=== PATIENT | male | born 1960 | race Caucasian/White ===

== ENCOUNTER 2019-02-06 15:07 | Inpatient (IN) | payer OTHER ==
[~2019-02-06] VITALS: Ht 185.4 cm; Wt 132.4 kg
[2019-02-06 15:13] VITALS: BP 138/93
[2019-02-06] MEDS ORDERED: LIPITOR80 MG PO (15:21)
[2019-02-06] MEDS ORDERED: VENTOLIN HFA 1818 GM INH (15:21)
[2019-02-06] MEDS ORDERED: ASPIR 8181 M1 PO (15:21)
[2019-02-06] MEDS ORDERED: GUAIFENESIN400 MG PO (15:22)
[2019-02-06] MEDS ORDERED: ALLER-EASE180 MG PO (15:22)
[2019-02-06] MEDS ORDERED: CARVEDILOL3.125 MG PO (15:22)
[2019-02-06] MEDS ORDERED: EFFIENT10 MG PO (15:23)
[2019-02-06] MEDS ORDERED: LISINOPRIL5 MG PO (15:23)
[2019-02-06] MEDS ORDERED: CLARITIN10 MG PO (15:23)
[2019-02-06 16:18] LABS: HEMATOCRIT 48.2 % (42.0-52.0); HEMOGLOBIN 16.7 gm/dL (14.0-18.0); MCH 29.3 pg (26.0-34.0); MCHC 34.5 g/dL (28.0-37.0); MPV 8.1 fl. (7.2-11.1); NUCLEATED RBCS 0 /100WBC; PLATELET COUNT* 278 thou/uL (150-400); RBC 5.68 mil/uL (4.50-6.00); RDW-CV 14.3 % (10.5-14.5); WBC 11.6 thou/uL (4.0-11.0)
[2019-02-06 16:33] LABS: ANION GAP 9 mmol/L (7-16); APTT 28.7 Seconds (25.0-31.3); BUN 13 mg/dL (7-18); CALCIUM 8.7 mg/dL (8.5-10.1); CHLORIDE 102 mmol/L (98-107); CO2 28 mmol/L (21-32); CREATININE 0.9 mg/dL (0.6-1.3); GLUCOSE 104 mg/dL (70-99); POTASSIUM 3.3 mmol/L (3.5-5.1); PROTIME 10.3 Seconds (9.20-11.50); SODIUM 139 mmol/L (136-145)
[2019-02-06 16:44] LABS: ALBUMIN 3.6 g/dL (3.4-5.0); ALKALINE PHOSPHATASE 130 U/L (46-116); LIPASE 76 U/L (73-393); MAGNESIUM 2.1 mg/dL (1.8-2.4); NT-PRO BRAIN NAT PEPTIDE 106 pg/mL (<300); SGOT 18 U/L (15-37); SGPT 45 U/L (30-65); TOTAL BILIRUBIN 0.9 mg/dL (<0.1-1.0); TROPONIN-I LEVEL <0.06 ng/mL (<0.06)
[2019-02-06 16:46] LABS: ABSOLUTE BASOPHILS 0.1 thou/uL (0.0-0.2); ABSOLUTE EOSINOPHILS 0.1 thou/uL (0.0-0.7); ABSOLUTE LYMPHOCYTES 0.7 thou/uL (0.8-5.3); ABSOLUTE MONOCYTES 0.7 thou/uL (0.0-1.2); PLATELET ESTIMATE ADEQUATE
[2019-02-06 18:34] LABS: BE -1.5 mmol/L (-2 to +3); PO2 75.9 mmHg (75.0-100.0); pH 7.405 (7.340-7.450)
[2019-02-06 22:00] VITALS: BP 106/61
[2019-02-07] VITALS (7 sets, daily range): BP systolic 108–149; BP diastolic 63–87
--- NOTE | 2019-02-07 17:00 | NUR ---
1540 PATIENT ADMITTED TO 226 FROM ER. SEE ADMISSION ASSESSMENT AND HISTORY. EDUCATION COMPLETED. SINUS RHYTHM
[2019-02-07] MEDS ORDERED: SINGULAIR 10 MG10 M1 PO (17:21)
--- NOTE | 2019-02-07 18:17 | NUR ---
PATIENT RECEIVED FROM ER THIS AFTERNOON. DENIES PAIN BUT ADMITS TO BLOATING FEELING IN MID ABDOMEN. NO NAUSEA. VSS. PLAN IS FOR IV ANTIBIOTICS. PATIENT HOPES TO GO HOME TOMORROW
[2019-02-08 00:05] VITALS: BP 123/79
[2019-02-08 04:00] VITALS: BP 108/65
--- NOTE | 2019-02-08 04:47 | NUR ---
PT SLEPT FAIRLY WELL OVERNIGHT HE STATES. UP AD SEPIDEH TO BR TO VOID, REQUESTING PRUNE JUICE FOR BM-GIVEN. LWRIST IVF INFUSING PER PUMP, ABX GIVEN ORDERED, SOLUMEDROL. RT TX. OCC COMPLIANCE REPRESENTATIVE COUGH. NO LABS THIS MORNING. HAS DENIED PAIN THIS SHIFT. TELE SR. ROOM AIR SAT 96%. ABLE TO USE CALL LITE AND MAKE NEEDS KNOWN.HOPEFUL FOR DISCHARGE TODAY.
[2019-02-08 07:10] VITALS: BP 140/83
--- NOTE | 2019-02-08 09:40 | NUR ---
INITAL ASSESSMENT COMPLETED CHARTED. VSS. TRACING SR WITH 1ST DEGREE ON MONITOR. PT SHINE PAIN, CP, AND SOA. PT DENIES ANY FURTHER NEEDS AT [facility]. HOURLY ROUNDING IN PLACE FOR PT SAFETY. CLWR.
--- NOTE | 2019-02-08 10:43 | CON ---
[address] [address] CONSULTATION Name: ROSA GUILLEN Room: [address] IN M.R.#: [id number] Admission: 02/06/19 Attend Phys: Catalina Lux Discharge: Date of : 58 Report #: [id number] THIS REPORT FOR: //name// CC: JUVENAL Alston CARDIOLOGY CONSULTATION INDICATION: Shortness of breath and chest pressure in a patient with ischemic cardiomyopathy. HISTORY OF PRESENT ILLNESS: The patient is a very pleasant 59-year-old gentleman who reports a history of anterior wall myocardial infarction last year. He reports an ejection fraction of 38%. He presented to the hospital with progressive chest pressure and shortness of breath. Cardiac enzymes are negative x 3 sets. EKG shows sinus rhythm with old anterior wall myocardial infarction. I do not appreciate acute ST or T-wave abnormalities. NT-proBNP is normal. Chest x-ray shows no evidence of pulmonary vascular congestion and normal cardiac silhouette. The patient is without other cardiac complaint. Since being admitted to the hospital, his symptoms have resolved. PAST MEDICAL HISTORY: 1. Coronary artery disease with anterior wall myocardial infarction in 12/2017. 2. Ischemic cardiomyopathy. 3. Hypertension. 4. Hyperlipidemia. 5. Chronic tobacco use. FAMILY HISTORY: Positive for coronary artery disease in the patient's mother. SOCIAL HISTORY: The patient smokes 3 cigarettes daily, drinks alcohol rarely. 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 ALLERGIES: None documented. CURRENT MEDICATIONS: Albuterol inhaler 1 puff q.4 hours p.r.n., aspirin 81 mg daily, atorvastatin 80 mg daily, carvedilol 3.125 mg b.i.d., fexofenadine 180 mg daily, guaifenesin 400 mg q.4 hours, lisinopril 5 mg daily, Claritin 10 mg daily, Effient 10 mg daily. REVIEW OF SYSTEMS: Positive for productive cough, COPD, palpitations, chest pressure, dyspnea on exertion, orthopnea, slight edema, occasional rash, [place] [address] CONSULTATION Name: ROSA GUILLEN Room: [address] IN [facility]#: [id number] Admission: 02/06/19 Attend Phys: Catalina Lux Discharge: Date of : 58 Report #: [id number] otherwise unremarkable. PHYSICAL EXAMINATION: VITAL SIGNS: Currently stable. Blood pressure 149/98, pulse 93 and regular. GENERAL: This is a pleasant gentleman who is in no distress. Mood and affect appropriate. HEENT: Extraocular muscles intact. Mucous membranes are moist. NECK: Shows no jugular venous distention. There are no carotid bruits. CHEST: Reveals clear lung rodríguez without wheezes or rales. CARDIOVASCULAR: Reveals a regular rhythm without gallop or murmur. ABDOMEN: Reveals normal bowel sounds. The abdomen is soft, nontender. EXTREMITIES: Shows no significant edema. Peripheral pulses are 2+ and easily palpable. SKIN: Dry. IMPRESSION AND RECOMMENDATIONS: 1. Shortness of breath due to chronic obstructive pulmonary disease exacerbation. No sign or symptom to suggest heart failure exacerbation. Continue albuterol. 2. Coronary artery disease, presently stable. Discontinue Effient at this time. Continue aspirin daily. 3. Hyperlipidemia. Continue statin agent as outlined above. 4. Chronic heart failure with ischemic cardiomyopathy, increasing carvedilol and lisinopril at this time. 5. Hypertension. Increase in carvedilol and lisinopril. At this point, the patient appears stable from cardiac standpoint. I believe he could be discharged to home with followup as indicated. <ELECTRONICALLY SIGNED> By: Bhaskar Randle MD, FACC 02/08/19 1043 [id number] Randle MD, FACC /nt
[2019-02-08] MEDS ORDERED: PREDNISONE 10 M10 MG PO (11:27)
[2019-02-08] MEDS ORDERED: FLAGYL500 M1 PO (11:27)
[2019-02-08] MEDS ORDERED: CIPRO500 MG PO (11:27)
[2019-02-08 12:04] VITALS: BP 140/83
[2019-02-08] MEDS ORDERED: PREDNISONE 10 M10 M1 PO (12:16)
--- NOTE | 2019-02-09 13:21 | EKG ---
[place] [address] ELECTROCARDIOGRAM REPORT Name: ROSA GUILLEN Room: [address] IN M.R.#: [id number] Admission: 02/06/19 Attend Phys: Catalina Lux Discharge: 02/08/19 Date of : 58 Report #: [id number] THIS REPORT FOR: //name// [facility] ED Test Date: 2019-02-06 Test Time: 15:15:17 Pat Name: ROSA GUILLEN Department: Room: [facility] Gender: M [employer] Machine Operator: MS : 1960 Requested By: Papa Mitchell Order Number: [id number] MD: Anselmo Robison Measurements Intervals [place] Rate: 123 P: 67 NV: 143 QRS: 22 QRSD: 105 T: 54 QT: 325 QTc: 465 Interpretive Statements Sinus tachycardia Probable left atrial enlargement Abnormal lateral Q waves Anterior infarct, old No previous ECG available for comparison Electronically Signed On 02-09-2019 13:21:42 CDT by Anselmo Robison [email or web address] <ELECTRONICALLY SIGNED> By: Anselmo Robison MD, [facility] 02/09/19 1321 1515 1515 Anselmo Robison MD, [facility] /EPI
== END 2019-02-08 12:44 | disposition home or self-care (01) | DRG 392 ==
LOC: M.ERS 15:07 → M.TBA-ER 18:04 → M.2W 02-07 15:42
PROVIDERS: Emergency Medicine Emergency Medical Services; ADMIT Internal Medicine
DX: K52.9 Noninfective gastroenteritis and colitis, unspecified (principal); J44.1 Chronic obstructive pulmonary disease with (acute) exacerbation; R07.9 Chest pain, unspecified; I11.0 Hypertensive heart disease with heart failure; I50.9 Heart failure, unspecified; E78.5 Hyperlipidemia, unspecified; F17.210 Nicotine dependence, cigarettes, uncomplicated; I25.10 Atherosclerotic heart disease of native coronary artery without angina pectoris; I25.5 Ischemic cardiomyopathy; I25.2 Old myocardial infarction; Z95.5 Presence of coronary angioplasty implant and graft